=== PATIENT | female | born 1940 | race Two or more races ===

== ENCOUNTER 2016-10-26 14:05 | Observation (INO) | payer MEDICARE, OTHER ==
[~2016-10-26] VITALS: Ht 165.1 cm; Wt 77.1 kg
[2016-10-26 14:54] VITALS: BP 135/59
[2016-10-26] MEDS ORDERED: MELOXICAM15 MG PO (15:01)
[2016-10-26] MEDS ORDERED: FOSAMAX70 MG ORAL (15:01)
[2016-10-26] MEDS ORDERED: GABAPENTIN100 MG ORAL (15:01)
[2016-10-26] MEDS ORDERED: PANTOPRAZOLE SO40 MG ORAL (15:01)
[2016-10-26] MEDS ORDERED: ASPIRIN EC81 MG ORAL (15:01)
[2016-10-26] MEDS ORDERED: LISINOPRIL20 MG ORAL (15:01)
[2016-10-26] MEDS ORDERED: ADVAIR 100-501 EACH INH (15:01)
[2016-10-26] MEDS ORDERED: SODIUM POL15 GM/60 M PO (15:01)
[2016-10-26] MEDS ORDERED: CARVEDILOL6.25 MG ORAL (15:01)
[2016-10-26] MEDS ORDERED: FUROSEMIDE40 MG ORAL (15:01)
[2016-10-26] MEDS ORDERED: MYRBETRIQ25 MG PO (15:01)
[2016-10-26 15:40] LABS: BASOPHILS % (AUTO) 2.1 % (0.0-2.0); EOSINOPHILS % (AUTO) 0.5 % (0.0-3.0); LYMPHOCYTES % (AUTO) 28.4 % (20.0-45.0); MEAN CORPUSCULAR HEMOGLOBIN 30.5 PG (27.0-31.0); MEAN CORPUSCULAR HGB CONC 31.9 G/DL (32.0-36.0); MEAN CORPUSCULAR VOLUME 96 FL (80-99); MEAN PLATELET VOLUME 7.7 FL (6.5-10.1); MONOCYTES % (AUTO) 7.1 % (1.0-10.0); NEUTROPHILS % (AUTO) 61.9 % (45.0-75.0); PLATELET COUNT 135 K/UL (150-450); RED BLOOD COUNT 4.68 M/UL (4.20-5.40); RED CELL DISTRIBUTION WIDTH 12.5 % (11.6-14.8)
[2016-10-26 15:41] LABS: TROPONIN I < 0.30 ng/mL (<=0.30)
[2016-10-26 15:42] LABS: ALANINE AMINOTRANSFERASE 8 U/L (3-33); ALBUMIN/GLOBULIN RATIO 1.3 (1.0-2.7); ANION GAP 16 (5-15); ASPARTATE AMINO TRANSFERASE 19 U/L (5-40); CALCIUM 8.6 mg/dL (8.6-10.2); CARBON DIOXIDE 23 mEQ/L (20-30); CHLORIDE 103 mEQ/L (98-107); CREATININE 0.8 mg/dL (0.5-0.9); HEMOLYSIS 45; POTASSIUM 3.5 mEQ/L (3.4-4.9); SODIUM 142 mEQ/L (135-145); TOTAL PROTEIN 6.4 g/dL (6.6-8.7)
[2016-10-26 15:43] VITALS: BP 120/50
[2016-10-26 15:43] LABS: PROTHROMBIN TIME 10.3 SEC (9.30-11.50)
[2016-10-26 15:53] LABS: CKMB < 1.5 ng/mL (< 3.8)
--- NOTE | 2016-10-26 16:30 | Diagnostic Imaging Report ---
Indication: Chest pain Technique: One view of the chest Comparison: none Findings: No acute infiltrates, effusions, or congestion. Tortuous calcified aorta. Normal heart size. Upper mediastinum unremarkable. Impression: No acute process.
[2016-10-26 17:31] VITALS: BP 124/51
[2016-10-26 19:19] VITALS: BP 123/63
--- NOTE | 2016-10-26 20:13 | Cardiology Progress Note ---
Assessment/Plan Assessment/Plan [id number] syncioep ? vaga lvs volume chest pain neg [facility] cystocel hyperlipidmia Objective Last 24 Hour Vital Signs Date Time Temp Pulse Resp B/P Pulse Ox O2 Delivery O2 Flow Rate FiO2 10/26/16 19:23 63 13 123/63 97 Room Air 10/26/16 19:19 63 13 123/63 97 Room Air 10/26/16 17:31 64 13 124/51 97 Room Air 10/26/16 15:43 65 13 120/50 97 Room Air 10/26/16 14:54 71 13 135/59 97 Room Air 10/26/16 14:47 73 13 Room Air 10/26/16 14:15 73 13 125/55 97 Room Air Laboratory Tests Test 10/26/16 15:25 White Blood Count 7.0 K/UL (4.8-10.8) Red Blood Count 4.68 M/UL (4.20-5.40) Hemoglobin 14.3 G/DL (12.0-16.0) Hematocrit 44.7 % (37.0-47.0) Mean Corpuscular Volume 96 FL (80-99) Mean Corpuscular Hemoglobin 30.5 PG (27.0-31.0) Mean Corpuscular Hemoglobin Concent 31.9 G/DL (32.0-36.0) L Red Cell Distribution Width 12.5 % (11.6-14.8) Platelet Count 135 K/UL (150-450) L Mean Platelet Volume 7.7 FL (6.5-10.1) Neutrophils (%) (Auto) 61.9 % (45.0-75.0) Lymphocytes (%) (Auto) 28.4 % (20.0-45.0) Monocytes (%) (Auto) 7.1 % (1.0-10.0) Eosinophils (%) (Auto) 0.5 % (0.0-3.0) Basophils (%) (Auto) 2.1 % (0.0-2.0) H Prothrombin Time 10.3 SEC (9.30-11.50) Prothromb Time International Ratio 1.0 (0.9-1.1) Activated Partial Thromboplast Time 20 SEC (23-33) L Sodium Level 142 mEQ/L (135-145) Potassium Level 3.5 mEQ/L (3.4-4.9) Chloride Level 103 mEQ/L (98-107) Carbon Dioxide Level 23 mEQ/L (20-30) Anion Gap 16 (5-15) H Blood Urea Nitrogen 16 mg/dL (7-23) Creatinine 0.8 mg/dL (0.5-0.9) Estimat Glomerular Filtration Rate mL/min (>60) Glucose Level 101 mg/dL (74-106) Calcium Level 8.6 mg/dL (8.6-10.2) Total Bilirubin 1.0 mg/dL (0.0-1.2) Aspartate Amino Transf (AST/SGOT) 19 U/L (5-40) Alanine Aminotransferase (ALT/SGPT) 8 U/L (3-33) Alkaline Phosphatase 61 U/L (35-104) Total Creatine Kinase 66 U/L (26-140) Creatine Kinase MB < 1.5 ng/mL (< 3.8) Creatine Kinase MB Relative Index 2.2 Troponin I < 0.30 ng/mL (<=0.30) Pro-B-Type Natriuretic Peptide 240 pg/mL (0-125) H Total Protein 6.4 g/dL (6.6-8.7) L Albumin 3.7 g/dL (3.5-5.2) Globulin 2.7 g/dL Albumin/Globulin Ratio 1.3 (1.0-2.7) CARA HOPKINS Oct 26, 2016 20:13
[2016-10-26] MEDS ORDERED: Milk of Magnesia 30ml Ud ORAL PRN (20:15)
[2016-10-26] MEDS: Carvedilol 6.25mg Tab ORAL SCH (21:00)
[2016-10-26] MEDS: Heparin 5000 units/ml inj SUBQ SCH (21:00)
[2016-10-27 00:24] VITALS: BP 119/57
--- NOTE | 2016-10-27 02:48 | History and Physical Report ---
DATE OF ADMISSION: 10/26/2016 CARDIOLOGY CONSULTATION REASON FOR ADMISSION: Syncope. HISTORY OF PRESENT ILLNESS: This is an elderly female, who is known to me from prior evaluation and hospitalization. The patient presented to the emergency room here at [facility] after having passed out. Face sheet that I was able to obtain from the patient's mononitrotoluene operator, who is with her most of the time that she got up and she was doing very well. [place] the [place] and all of a sudden she started having some pain in the left side of the chest and left arm and eventually the pain dissipated, but she became very dizzy. She passed out. She became very diaphoretic and eventually lost consciousness. She was sitting. Eventually she fell back towards the mononitrotoluene operator, who sat her down and gave her some water. The paramedics were subsequently summoned and the patient was brought to the emergency room at [facility]. Unfortunately, the equipment maintenance engineer run sheet is not available for me to review to see what the blood pressure was when they found her, but according to the mononitrotoluene operator, she was told that her blood pressure was quite low. She eventually was out for approximately three minutes and came through and she was feeling fine. She denies any other chest pain. She subsequently got up and walked to the bathroom and has had no problems with walking to the bathroom. No dizziness or lightheadedness. She does not have any PND or orthopnea. No shortness of breath. She was not getting dizzy or lightheaded when she sits up. She did have some palpitations earlier. PAST MEDICAL HISTORY: Extensive and includes history of hypertension and history of hyperlipidemia, supposedly has had some kind of myocardial infarction that was never confirmed. She had a liver cyst that was resected at [facility] recently. She has osteoporosis and arthritis. She has had a history of bladder suspension, hysterectomy, cholecystectomy, and umbilical hernia. She had a negative perfusion imaging in December 2015. She does have a history of cystocele and melanocytic nevi noted as well as osteoporosis. ALLERGIES: She is not allergic to any medications. MEDICATIONS: Her medications at home include Protonix 40 mg daily, lisinopril 20 mg daily, aspirin 81 mg daily, carvedilol 6.25 mg twice a day, Lasix 60 mg daily, meloxicam 15 mg daily, gabapentin 100 mg three times a day, Advair Diskus, Fosamax 70 mg a week, ER 25 mg daily. She is status post some antibiotics for three days for urinary tract infection. SOCIAL HISTORY: She never smoked. No alcohol. No drugs. 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 She has many kids, but not . She has a mononitrotoluene operator at home herself. REVIEW OF SYSTEMS: Gastrointestinal: She did not have any nausea or vomiting. She did feel like she wanted to have a bowel movement after she woke up and when she did wake up, she had some small amounts of blood on the tissue when she wiped herself. Genitourinary: She has been followed by urologist, Dr. Burrows , for which she has been contemplating consultation for possible surgery upcoming. Pulmonary: Negative. Constitutional: Negative. Neurologic: Negative. PHYSICAL EXAMINATION: VITAL SIGNS: Blood pressure anywhere between 125/55 at the time of admission to 135/59. LABORATORY AND DIAGNOSTIC DATA: Her white count was 7, hemoglobin 14.3, and a platelet count of 135,000. Sodium 142, potassium 3.5, chloride 103, bicarbonate 22, BUN of 16, creatinine 0.8, and glucose of 101. Calcium is 8.1. Troponin is less than 0.3. ProBNP is only 240. Troponin was 6.4. Coags, INR 1.2 and PTT of 22. She had a chest x-ray performed in the emergency room that was no acute processes. ASSESSMENT AND PLAN: 1. Syncope. 2. Possible vasovagal episode. 3. Hypotension. 4. Chest pain with a negative ischemic evaluation close to 11 months ago or 10 months ago. 5. Cystocele. 6. Hyperlipidemia history. This patient was admitted through the emergency room because of bouts of syncope, the etiology of which needs to be worked up. She is on antihypertensive and diuretics at home, which may have contributed to her symptoms, although the symptoms that occurred immediately after the chest pain makes me wonder if this was a vasovagal episode related to pain. Of course the myocardial infarction needs to be excluded. She does have indication that she had some blood in her stools when she wiped herself 05:00 commode today. The patient will be monitored overnight. Serial enzymes and EKGs will be checked. The patient's orthostatic vitals will be checked. IV fluid will be administered. Diuretics will be held. Her blood pressure medication will need to be adjusted. Stool studies will be obtained. Repeat CBCs will be ordered. Meloxicam will be on hold and evaluation for possible GI bleeding will be done. Antoine Landon M.D. DR: JOCY JOB#: [id number] CC:
[2016-10-27 04:11] VITALS: BP 126/59
[2016-10-27 07:15] LABS: LYMPHOCYTES % (AUTO) 40.6 % (20.0-45.0); MEAN CORPUSCULAR HEMOGLOBIN 30.9 PG (27.0-31.0); MEAN CORPUSCULAR HGB CONC 32.3 G/DL (32.0-36.0); MEAN CORPUSCULAR VOLUME 96 FL (80-99); MEAN PLATELET VOLUME 7.3 FL (6.5-10.1); MONOCYTES % (AUTO) 9.3 % (1.0-10.0); NEUTROPHILS % (AUTO) 46.1 % (45.0-75.0); PLATELET COUNT 162 K/UL (150-450); RED BLOOD COUNT 4.06 M/UL (4.20-5.40); RED CELL DISTRIBUTION WIDTH 12.7 % (11.6-14.8); WHITE BLOOD COUNT 5.1 K/UL (4.8-10.8)
[2016-10-27 08:00] VITALS: BP 130/64
[2016-10-27] MEDS ORDERED: Aspirin EC 81mg tab ORAL SCH (09:00)
[2016-10-27] MEDS: Carvedilol 6.25mg Tab ORAL SCH (09:16)
[2016-10-27] MEDS: Heparin 5000 units/ml inj SUBQ SCH (09:18)
--- NOTE | 2016-10-27 09:48 | Cardiology Progress Note ---
Assessment/Plan Assessment/Plan 1. Syncope. 2. Possible vasovagal episode vs volume depeltion 3. Hypotension. 4. Chest pain with a negative ischemic evaluation close to 11 months ago or 10 months ago. 5. Cystocele. 6. Hyperlipidemia history. orthostatic vital postive today after over nite hydration off bp meds for wno will increases ivf rate for now will ocnsider dc home later to day repeat labs pending will have rn call me with pm orthostatic vital fo dc orders will keep off lasix for a few day see m in the office after 5-7 days will repeat cbc this after noon again as well d/w rn Subjective Cardiovascular: Denies: chest pain, lightheadedness, palpitations Respiratory: Denies: shortness of breath Gastrointestinal/Abdominal: Denies: black stools Genitourinary: Denies: burning Objective Last 24 Hour Vital Signs Date Time Temp Pulse Resp B/P Pulse Ox O2 Delivery O2 Flow Rate FiO2 10/27/16 09:16 71 110/51 10/27/16 08:10 71 10/27/16 08:05 66 10/27/16 08:00 98.1 67 18 130/64 96 Room Air 10/27/16 08:00 67 10/27/16 04:11 98.3 63 19 126/59 94 Room Air 10/27/16 04:00 62 10/27/16 00:24 98.8 66 18 119/57 97 Room Air 10/27/16 00:00 59 10/26/16 22:42 64 64 76 10/26/16 21:00 64 122/68 10/26/16 19:23 63 13 123/63 97 Room Air 10/26/16 19:19 63 13 123/63 97 Room Air 10/26/16 17:31 64 13 124/51 97 Room Air 10/26/16 15:43 65 13 120/50 97 Room Air 10/26/16 14:54 71 13 135/59 97 Room Air 10/26/16 14:47 73 13 Room Air 10/26/16 14:15 73 13 125/55 97 Room Air General Appearance: no apparent distress, alert Neck: supple Cardiovascular: normal rate, regular rhythm Respiratory/Chest: lungs clear, normal breath sounds Abdomen: normal bowel sounds, non tender, soft Extremities: no swelling Intake and Output 10/26/16 10/27/16 19:00 07:00 Intake Total 0 ml 462 ml Balance 0 ml 462 ml Intake Oral 0 ml IV Total 462 ml # Voids 1 Laboratory Tests Test 10/26/16 15:25 10/27/16 06:25 White Blood Count 7.0 K/UL (4.8-10.8) 5.1 K/UL (4.8-10.8) Red Blood Count 4.68 M/UL (4.20-5.40) 4.06 M/UL (4.20-5.40) L Hemoglobin 14.3 G/DL (12.0-16.0) 12.6 G/DL (12.0-16.0) Hematocrit 44.7 % (37.0-47.0) 38.9 % (37.0-47.0) Mean Corpuscular Volume 96 FL (80-99) 96 FL (80-99) Mean Corpuscular Hemoglobin 30.5 PG (27.0-31.0) 30.9 PG (27.0-31.0) Mean Corpuscular Hemoglobin Concent 31.9 G/DL (32.0-36.0) L 32.3 G/DL (32.0-36.0) Red Cell Distribution Width 12.5 % (11.6-14.8) 12.7 % (11.6-14.8) Platelet Count 135 K/UL (150-450) L 162 K/UL (150-450) Mean Platelet Volume 7.7 FL (6.5-10.1) 7.3 FL (6.5-10.1) Neutrophils (%) (Auto) 61.9 % (45.0-75.0) 46.1 % (45.0-75.0) Lymphocytes (%) (Auto) 28.4 % (20.0-45.0) 40.6 % (20.0-45.0) Monocytes (%) (Auto) 7.1 % (1.0-10.0) 9.3 % (1.0-10.0) Eosinophils (%) (Auto) 0.5 % (0.0-3.0) 2.0 % (0.0-3.0) Basophils (%) (Auto) 2.1 % (0.0-2.0) H 2.0 % (0.0-2.0) Prothrombin Time 10.3 SEC (9.30-11.50) Prothromb Time International Ratio 1.0 (0.9-1.1) Activated Partial Thromboplast Time 20 SEC (23-33) L Sodium Level 142 mEQ/L (135-145) Potassium Level 3.5 mEQ/L (3.4-4.9) Chloride Level 103 mEQ/L (98-107) Carbon Dioxide Level 23 mEQ/L (20-30) Anion Gap 16 (5-15) H Blood Urea Nitrogen 16 mg/dL (7-23) Creatinine 0.8 mg/dL (0.5-0.9) Estimat Glomerular Filtration Rate mL/min (>60) Glucose Level 101 mg/dL (74-106) Calcium Level 8.6 mg/dL (8.6-10.2) Total Bilirubin 1.0 mg/dL (0.0-1.2) Aspartate Amino Transf (AST/SGOT) 19 U/L (5-40) Alanine Aminotransferase (ALT/SGPT) 8 U/L (3-33) Alkaline Phosphatase 61 U/L (35-104) Total Creatine Kinase 66 U/L (26-140) Creatine Kinase MB < 1.5 ng/mL (< 3.8) Creatine Kinase MB Relative Index 2.2 Troponin I < 0.30 ng/mL (<=0.30) Pro-B-Type Natriuretic Peptide 240 pg/mL (0-125) H Total Protein 6.4 g/dL (6.6-8.7) L Albumin 3.7 g/dL (3.5-5.2) Globulin 2.7 g/dL Albumin/Globulin Ratio 1.3 (1.0-2.7) Thyroid Stimulating Hormone (TSH) 2.050 uIU/mL (0.300-4.500) CARA HOPKINS Oct 27, 2016 09:48
[2016-10-27 10:41] LABS: ANION GAP 9 (5-15); CALCIUM 8.4 mg/dL (8.6-10.2); CARBON DIOXIDE 26 mEQ/L (20-30); CHLORIDE 108 mEQ/L (98-107); CREATININE 0.7 mg/dL (0.5-0.9); HEMOLYSIS 6; POTASSIUM 5.2 mEQ/L (3.4-4.9); SODIUM 143 mEQ/L (135-145)
[2016-10-27 12:14] VITALS: BP 118/68
[2016-10-27 14:23] LABS: BASOPHILS % (AUTO) 1.9 % (0.0-2.0); EOSINOPHILS % (AUTO) 2.2 % (0.0-3.0); LYMPHOCYTES % (AUTO) 45.5 % (20.0-45.0); MEAN CORPUSCULAR HEMOGLOBIN 30.4 PG (27.0-31.0); MEAN CORPUSCULAR HGB CONC 31.4 G/DL (32.0-36.0); MEAN CORPUSCULAR VOLUME 97 FL (80-99); MEAN PLATELET VOLUME 7.3 FL (6.5-10.1); MONOCYTES % (AUTO) 9.6 % (1.0-10.0); NEUTROPHILS % (AUTO) 40.9 % (45.0-75.0); PLATELET COUNT 169 K/UL (150-450); RED CELL DISTRIBUTION WIDTH 12.9 % (11.6-14.8)
[2016-10-27 16:00] VITALS: BP 122/61
[2016-10-27 16:39] VITALS: BP 122/61
[2016-10-27] MEDS ORDERED: FUROSEMIDE20 M1 ORAL (18:03)
[2016-10-27] MEDS ORDERED: Milk of Magnesia 30ml Ud ORAL PRN (20:15)
[2016-10-27] MEDS ORDERED: Heparin 5000 units/ml inj SUBQ SCH (21:00)
[2016-10-27] MEDS ORDERED: Carvedilol 6.25mg Tab ORAL SCH (21:00)
[2016-10-28] MEDS ORDERED: Aspirin EC 81mg tab ORAL SCH (09:00)
--- NOTE | 2016-10-29 14:05 | Cardiology Report ---
APPROVED REPORT EKG Measurement Heart [id number] Sinus bradycardia Otherwise normal ECG
--- NOTE | 2016-10-29 14:10 | Cardiology Report ---
APPROVED REPORT EKG Measurement Heart [id number] Normal sinus rhythm Normal ECG
--- NOTE | 2016-10-29 15:57 | Emergency Room Report ---
History of Present Illness General Chief Complaint: Chest Pain Source: Patient Present Illness HPI Patient presents with complaints of chest pain midsternal Family also reports the patient appeared to have a lapse of consciousness At this time patient is essentially chest pain-free Denies any vomiting or diarrhea Denies any neck pain Pain was midsternal and left upper chest area 10/23 Denies any focal weakness Allergies: Coded Allergies: No Known Allergies (Unverified , 10/26/16) Patient History Past Medical History: see triage record Pertinent Family History: none Reviewed Nursing Documentation: PMH: Agreed, PSxH: Agreed Nursing Documentation-PMH Past Medical History: No History, Except For Hx Hypertension: Yes Hx Asthma: Yes Hx Diabetes: No Hx Cancer: No Hx Gastrointestinal Problems: Yes - colonoscopy 1 year Hx Speech Problem: No Hx Tremors: No Hx Vertigo: No Review of Systems All Other Systems: negative except mentioned in HPI Physical Exam Vital Signs Date Time Temp Pulse Resp B/P Pulse Ox O2 Delivery O2 Flow Rate FiO2 10/26/16 14:15 73 13 125/55 97 Room Air 10/27/16 00:24 98.8 Sp02 EP Interpretation: reviewed, normal General Appearance: well appearing, no apparent distress Head: normocephalic, atraumatic Eyes: bilateral eye EOMI, bilateral eye PERRL ENT: hearing grossly normal, normal pharynx, TMs + canals normal, uvula midline Neck: full range of motion, supple, no meningismus, no bony tend Respiratory: lungs clear, normal breath sounds, no rhonchi, no respiratory distress, no retraction, no accessory muscle use Cardiovascular #1: normal peripheral pulses, regular rate, rhythm, no edema, no gallop, no JVD, no murmur Gastrointestinal: normal bowel sounds, non tender, soft, no mass, no organomegaly, non-distended, no guarding, no hernia, no pulsatile mass, no rebound Genitourinary: no CVA tenderness Musculoskeletal: normal inspection Neurologic: oriented x3, responsive, machine operator helper III-XII nml as tested, motor strength/ tone normal, sensory intact Psychiatric: mood/affect normal Skin: normal color, no rash, warm/dry, palpation normal Lymphatic: normal inspection, no adenopathy Medical Decision Making Diagnostic Impression: Primary Impression: Chest pain Additional Impressions: ACS (acute coronary syndrome) Syncope ER Course Patient is a fairly complex patient with multiple differential to consideration including but not limited to cardiac cardiopulmonary and vascular emergencies Given the patient's history examined the presentation Blood work at this time initially appropriate patient has done better with regards to her pain was also consideration for possible syncopal episode And the patient will require inpatient care Labs Test 10/27/16 06:05 10/27/16 06:25 10/27/16 14:08 Sodium Level 143 mEQ/L (135-145) Potassium Level 5.2 mEQ/L (3.4-4.9) Chloride Level 108 mEQ/L (98-107) Carbon Dioxide Level 26 mEQ/L (20-30) Anion Gap 9 (5-15) Blood Urea Nitrogen 17 mg/dL (7-23) Creatinine 0.7 mg/dL (0.5-0.9) Estimat Glomerular Filtration Rate mL/min (>60) Glucose Level 101 mg/dL (74-106) Calcium Level 8.4 mg/dL (8.6-10.2) White Blood Count 5.1 K/UL (4.8-10.8) 5.0 K/UL (4.8-10.8) Red Blood Count 4.06 M/UL (4.20-5.40) 4.30 M/UL (4.20-5.40) Hemoglobin 12.6 G/DL (12.0-16.0) 13.1 G/DL (12.0-16.0) Hematocrit 38.9 % (37.0-47.0) 41.6 % (37.0-47.0) Mean Corpuscular Volume 96 FL (80-99) 97 FL (80-99) Mean Corpuscular Hemoglobin 30.9 PG (27.0-31.0) 30.4 PG (27.0-31.0) Mean Corpuscular Hemoglobin Concent 32.3 G/DL (32.0-36.0) 31.4 G/DL (32.0-36.0) Red Cell Distribution Width 12.7 % (11.6-14.8) 12.9 % (11.6-14.8) Platelet Count 162 K/UL (150-450) 169 K/UL (150-450) Mean Platelet Volume 7.3 FL (6.5-10.1) 7.3 FL (6.5-10.1) Neutrophils (%) (Auto) 46.1 % (45.0-75.0) 40.9 % (45.0-75.0) Lymphocytes (%) (Auto) 40.6 % (20.0-45.0) 45.5 % (20.0-45.0) Monocytes (%) (Auto) 9.3 % (1.0-10.0) 9.6 % (1.0-10.0) Eosinophils (%) (Auto) 2.0 % (0.0-3.0) 2.2 % (0.0-3.0) Basophils (%) (Auto) 2.0 % (0.0-2.0) 1.9 % (0.0-2.0) Thyroid Stimulating Hormone (TSH) 2.050 uIU/mL (0.300-4.500) EKG Diagnostic Results Rate: normal Rhythm: NSR ST Segments: other - nonspecific ST and T-wave changes Rhythm Strip Diag. Results EP Interpretation: yes Rate: 77 Rhythm: NSR, no PVC's, no ectopy Chest X-Ray Diagnostic Results EP Interpretation: Yes Findings: no consolidation, no effusion, no pneumothorax Number of Views: 1 Last Vital Signs Date Time Temp Pulse Resp B/P Pulse Ox O2 Delivery O2 Flow Rate FiO2 10/27/16 16:39 97.7 70 18 122/61 98 Room Air Status: improved Disposition: ADMITTED INPATIENT Condition: Serious Referrals: CARA HOPKINS (PCP) Patient Instructions: Acute Compartment Syndrome, Chest Pain Observation EDVIN SULLIVAN D.O. Oct 29, 2016 15:57
== END 2016-10-27 20:30 | disposition home or self-care (01) ==
LOC: EDBD 14:05 → EMR 14:45 → 2E 14:55 → INTOOBSV 14:55 → EDBEDREQ 17:14 → 2E 19:03 → 4E 10-27 13:25
DX: R55 Syncope and collapse (principal); I95.9 Hypotension, unspecified; R07.9 Chest pain, unspecified; N81.10 Cystocele, unspecified; E78.5 Hyperlipidemia, unspecified; K92.1 Melena; I10 Essential (primary) hypertension; J45.909 Unspecified asthma, uncomplicated; M81.0 Age-related osteoporosis without current pathological fracture; M19.90 Unspecified osteoarthritis, unspecified site; D22.9 Melanocytic nevi, unspecified; Z79.82 Long term (current) use of aspirin; Z90.710 Acquired absence of both cervix and uterus; Z90.49 Acquired absence of other specified parts of digestive tract
CPT/HCPCS: 36415 ×2; 71010; 80048; 80053; 82550; 82553; 83880; 84443; 84484; 85025 ×2; 85610; 85730; 93005 ×2; 99285; G0378 ×2; J1644 ×2